=== PATIENT | male | born 1965 | race Hispanic/Latino ===

== ENCOUNTER 2016-07-23 10:00 | Emergency (ER) | payer OTHER ==
[2016-07-23 10:04] VITALS: BMI 31.6
[2016-07-23] MEDS ORDERED: TDAP Vaccine 0.5 mL Syr IM ONE (10:11)
[2016-07-23 10:13] VITALS: TEMP 98; O2SAT 99
--- NOTE | 2016-07-23 10:14 | ED PDOC ---
Arrival/HPI - General Chief Complaint: Abnormal Skin Integrity Time Seen by Provider: 07/23/16 10:10 Historian: Patient - History of Present Illness Narrative History of Present Illness (Text): 07/23/16 10:10 50-year-old male presents today with a laceration to the right leg. Patient states while at work a metal grid fell from the ceiling and hit him on the anterior aspect of the right lower leg. Patient denies pain. Denies numbness weakness or tingling in the extremity. Patient unsure of his last tetanus shot. Patient states he usually doesn't stitch things back up but he was having difficulty getting the bleeding to stop. Time/Duration: Prior to Arrival Symptom Onset: Sudden Past Medical History - Provider Review Nursing Documentation Reviewed: Yes - Travel History Have you recently traveled outside [place] w/in the past 3 mons?: No - Infectious Disease Hx of Infectious Diseases: None - Tetanus Immunization Tetanus Immunization: Unknown - Psychiatric Hx Substance Use: No Family/Social History - Physician Review Nursing Documentation Reviewed: Yes Family/Social History: Unknown Family HX Smoking Status: Never Smoked Hx Alcohol Use: Yes Frequency of alcohol use: Socially Hx Substance Use: No Allergies/Home Meds Allergies/Adverse Reactions: Allergies No Known Allergies Allergy (Verified 07/23/16 10:08) Review of Systems - Review of Systems Constitutional: absent: Fatigue, Fevers Respiratory: absent: SOB, Cough Cardiovascular: absent: Chest Pain, Palpitations Gastrointestinal: absent: Abdominal Pain, Nausea, Vomiting Musculoskeletal: Arthralgias Skin: Laceration Neurological: absent: Headache, Dizziness Physical Exam Vital Signs Reviewed: Yes Vital Signs Temp Pulse Resp BP Pulse Ox 07/23/16 11:13 89 18 128/89 99 07/23/16 10:07 98.0 F 98 H 20 132/90 99 Temperature: Afebrile Blood Pressure: Hypertensive Pulse: Regular Respiratory Rate: Normal Appearance: Positive for: Well-Appearing, Non-Toxic, Comfortable Pain Distress: None Mental Status: Positive for: Alert and Oriented X 3 - Systems Exam Head: Present: Atraumatic, Ecchymosis Neck: Present: Normal Range of Motion Respiratory/Chest: Present: Clear to Auscultation, Good Air Exchange. No: Respiratory Distress, Accessory Muscle Use Cardiovascular: Present: Regular Rate and Rhythm, Normal S1, S2. No: Murmurs Lower Extremity: Present: NORMAL PULSES, Normal ROM, Neurovascularly Intact, Capillary Refill < 2 s, Other (right lower leg; there is a 3cm linear laceration over the anterior aspect of the right lower leg; no active bleeding; full rom of leg. ambulates with steady gait; no bony tenderness. ). No: CALF TENDERNESS, Tenderness, Swelling, Erythema, Deformity Neurological: Present: GCS=15, Speech Normal Skin: Present: Warm, Dry Psychiatric: Present: Alert, Oriented x 3 Medical Decision Making ED Course and Treatment: 07/23/16 10:13 Patient is nontoxic well appearing in no distress. Vital signs are stable. Wound irrigated well with high pressure irrigation Tetanus updated Laceration repair: 7 sutures placed Bacitracin and dressing applied Patient was advised to keep the wound clean and dry, apply bacitracin twice daily. Advised to return immediately if signs of infection develop or return if any other concerning symptoms develop Patient verbalizes understanding of discharge instructions and need for immediate followup. Impression: Laceration, leg Motrin every 6 hours as needed for pain keflex; 1 capsule 4 times daily x 5 days. Keep the wound clean and dry, apply bacitracin twice daily Return in 10 days for suture removal Return immediately if signs of infection develop: High fevers, increasing pain, redness, swelling, purulent discharge Followup with primary care physician within the next 2 days Return if any other concerning symptoms develop - Medication Orders Current Medication Orders: Discontinued Medications Lidocaine HCl (Lidocaine 1% (20ml)) Confirm Administered Dose 20 ml .ROUTE .SimuForm- MED ONE Stop: 07/23/16 10:20 Tetanus/Reduced Diphtheria/Acell Pertussis (Boostrix Vaccine Inj) 0.5 ml IM .ONCE ONE Stop: 07/23/16 10:12 Last Admin: 07/23/16 10:20 Dose: 0.5 ml Procedure: Wound Repair - Procedure Procedure: Wound Repair: right leg laceration - Consent Obtained Consent obtained: Verbal - Performed by Performed by: Mid-level Provider - Indications Indication(s):: Laceration - Location Location:: Right, Anterior, Leg Dimensions Length cm: 3cm Depth:: Epidermis - Anesthetic Technique Local/Regional Anesthetic:: Lidocaine 1% (2cc) - Wound Examination Wound Examination:: Other (no contamination) - Debris Debris:: None - Irrigated Irrigated with ml of normal saline: copious amounts of NS using high pressure irrigation - Complexity Complexity:: Simple (one layer) - Wound repair method Sutures:: # (7), Size (4.0), Type (nylon), Technique (interrupted) - Complications Complications: none - Patient tolerated procedure Patient Tolerated Procedure:: Well Disposition/Present on Arrival - Present on Arrival Any Indicators Present on Arrival: No History of DVT/PE: No History of Uncontrolled Diabetes: No Urinary Catheter: No History of Decub. Ulcer: No History Surgical Site Infection Following: None - Disposition Have Diagnosis and Disposition been Completed?: Yes Diagnosis: Laceration of leg Disposition: HOME/ ROUTINE Disposition Time: 10:27 Patient Plan: Discharge Condition: GOOD Discharge Instructions (ExitCare): Laceration (ED) Additional Instructions: Motrin every 6 hours as needed for pain keflex; 1 capsule 4 times daily x 5 days. Keep the wound clean and dry, apply bacitracin twice daily Return in 10 days for suture removal Return immediately if signs of infection develop: High fevers, increasing pain, redness, swelling, purulent discharge Followup with primary care physician within the next 2 days Return if any other concerning symptoms develop Prescriptions: Cephalexin [Keflex] 500 mg PO QID #20 capsule Referrals: Juan Adhikari MD [Staff Provider] - Follow up with primary Omar Fuller MD [Staff Provider] - Follow up with primary Radu John MD [Staff Provider] - Follow up with primary Forms: WORK NOTE
[2016-07-23] MEDS ORDERED: Lidocaine 1% Inj (20ml) ONE (10:19)
[2016-07-23 11:13] VITALS: BP 128/89; PULSE 89; RESP 18
== END 2016-07-23 11:16 | disposition home or self-care (01) ==
LOC: ED 10:00
DX: S81.811A Laceration without foreign body, right lower leg, initial encounter (principal); W45.8XXA Other foreign body or object entering through skin, initial encounter; Y93.89 Activity, other specified; Y92.89 Other specified places as the place of occurrence of the external cause; Y99.8 Other external cause status; Z23 Encounter for immunization